=== PATIENT | female | born 1980 | race Asian ===

== ENCOUNTER 2017-12-31 05:30 | Inpatient (IN) | payer OTHER ==
[2017-12-31] MEDS ORDERED: LR / Pitocin 40 units/1000 ml 1,000 ML ONE (05:49)
[2017-12-31] MEDS ORDERED: Lidocaine 1% (PF) 30 ML VIAL ONE (05:49)
[2017-12-31] MEDS ORDERED: Promethazine HCl 25 MG/ML VIAL IM PRN (06:17)
[2017-12-31] MEDS ORDERED: Lidocaine 1% (PF) 30 ML VIAL SC PRN (06:17)
[2017-12-31] MEDS ORDERED: Ondansetron HCl/PF 4 MG/2 ML Vial IVP PRN (06:17)
[2017-12-31] MEDS ORDERED: LR / Pitocin 40 units/1000 ml 1,000 ML IV PRN (06:17)
[2017-12-31 06:27] LABS: Hemoglobin 13.4 g/dL (12.0-16.0); Mean Corpuscular HGB CONC 32.7 g/dL (32.0-36.0); Mean Corpuscular Volume 73.5 fl (81.0-99.0); Mean Platelet Volume 8.4 fL (7.4-10.4); Platelet Count 235 thou/uL (130-400); RBC Distribution Width 13.3 % (11.5-14.5); Red Blood Cell (RBC) Count 5.57 mill/uL (4.20-5.40); White Blood Cell (WBC) Count 11.4 thou/uL (4.8-10.8)
--- NOTE | 2017-12-31 06:32 | PDOC.LDHP ---
Labor and Delivery H&P Chief complaint: contractions, loss of fluid HPI: 37 yo at 39.5 by LMP c/s 7.3 week US presents with loss of fluid and contractions. Current gestational age (weeks): 39 (39.5) Dating criteria: last menstrual period Current complications: gestational diabetes (A1), other (AMA) Abnormal US findings: No Current medications: pre- vitamins, iron Social history: none - Physical Exam Vital signs reviewed and normal: yes General: NAD, breathing through contractions Heart: RRR Lungs: CTAB Abdomen: gravid Extremeties: no edema FHT: category 1 [place] contractions every: 2-3 - Vaginal Exam Effacement: 100% Station: 0 - OB Labs Blood type: A RH: positive Antibody Screen: negative HIV: negative RPR: negative HEPSAg: negative 1 hour GCT: negative 3 hour GTT: positive GBS: positive Urine drug screen: negative Rubella: immune - Assessment L&D Assessment: term patient in labor - Plan Plan: admit to L&D <Brandon Garcia - Last Filed: 12/31/17 06:26> Attending Addendum - Attending Addendum Date/Time: 12/31/17 4209 I personally evaluated the patient and discussed the management with Dr. Garcia. I agree with the History, Examination, Assessment and Plan documented above with any addition or exceptions noted below. Patient c/c/+1, subsequently precipitously delivered. <Pan Barrios - Last Filed: 12/31/17 14:20>
--- NOTE | 2017-12-31 06:36 | PDOC.OPDEL ---
OB Operative/Delivery Note Delivery Dr/Surgeon: Araceli Garcia Williamson Pre-Delivery Diagnosis: active labor, ruptured membrane Procedure/Post Delivery Dx: spontaneous vaginal delivery Weeks gestation: 39 (39.6) Anesthesia: none - Findings A Sex: female Weight: 3.345 kg - 1 min: 8 - 5 min: 9 - Additional Findings/Plan Placenta delivered: spontaneous Repaired Obstetrical Laceration: none Estimated blood loss: 300ml Post delivery plan: routine recovery <Brandon Garcia - Last Filed: 12/31/17 06:34> Attending Addendum - Attending Addendum Date/Time: 12/31/17 1421 Present for entire delivery. Multipara s/p precipitous term to viable male ag 8. delivered in BILL position, atrumatically with nuchal cord x 2. Optimal cord clamping performed. placed on mother. Cord blood sampled and placenta delivered via CCT. Uterus firmed with fundal massage and IV pitocin. Perineum inspected and no lacerations noted. <Pan Barrios - Last Filed: 12/31/17 14:29>
[2017-12-31 07:07] VITALS: BMI 23.1
[2017-12-31 07:10] LABS: HBSAg Index 0.18 S/CO (0-0.99); Hep B Surf Ag Non-Reactive S/CO (NonReactive)
[2017-12-31 07:11] LABS: Syphilis Antibody Nonreactive (Nonreactive); Syphilis Antibody Index 0.03 S/CO (<1.00 Non-Reactive)
[2017-12-31] MEDS ORDERED: Milk Of Magnesia 30 ML UDCUP PO PRN (09:00)
[2017-12-31] MEDS ORDERED: Bisacodyl 10 MG SUPP PR PRN (09:00)
[2017-12-31] MEDS ORDERED: Adacel (T-DAP) 0.5 ML VIAL IM ONE (09:00)
[2017-12-31] MEDS ORDERED: Benzocaine/Menthol 20-0.5% 60 ML CAN TOP PRN (09:00)
[2017-12-31] MEDS ORDERED: Lanolin Ointment 7 GM TUBE TOP PRN (09:00)
[2017-12-31] MEDS ORDERED: Preparation H Ointment 28 GM TUBE PR PRN (09:00)
[2017-12-31] MEDS ORDERED: LR / Pitocin 40 units/1000 ml 1,000 ML IV SCH (09:00)
[2017-12-31] MEDS: Ferrous Sulfate 325 MG TAB PO SCH ×2 (11:31→17:33)
[2017-12-31] MEDS: Docusate Calcium (SURFAK) 240 MG CAP PO SCH ×2 (11:37→22:10)
[2017-12-31] MEDS: Prenatal Vitamin 1 TAB PO SCH (11:37)
[2017-12-31] MEDS: Ibuprofen 800 MG TAB PO SCH ×2 (11:37→22:09)
[2018-01-01] MEDS: Ibuprofen 800 MG TAB PO SCH ×2 (05:51→14:31)
--- NOTE | 2018-01-01 08:26 | PDOC.PP ---
Post Progress Note Post Day #: 1 Subjective: Pain well controlled. No concerns. would like to go home to day if possible. [employer] Specialist used. PO intake tolerated: yes Flatus: yes Ambulation: yes Vital Signs (12 hours) Temp Pulse Resp BP BP 01/01/18 06:00 98.4 F 67 16 104/69 01/01/18 00:00 97.9 F 68 18 101/59 L Weight Weight 61.235 kg - Physical Examination General: NAD Cardiovascular: no m/r/g, RRR Respiratory: clear to auscultation bilaterally, non-labored breathing Abdominal: + bowel sounds, lochia, no distention, appropriately TTP Fundus firm & at: 2 cm below umbilicus Extremities: negative homans (B) Neurological: no gross focal deficits Psychiatric: A&Ox3, normal affect Result Diagrams: 12/31/17 05:56 Additional Labs: Post Labs Blood Type A POSITIVE 12/31/17 05:56 Hep Bs Antigen Non-Reactive S/CO (NonReactive) 12/31/17 05:56 (1) Term delivered Code(s): O80 - ENCOUNTER FOR FULL-TERM UNCOMPLICATED DELIVERY Status: Acute Comment: Pain is controlled and patient is doing well. Will plan on d/c later today if baby is stable for d/c. (2) Gestational diabetes Code(s): O24.419 - GESTATIONAL DIABETES MELLITUS IN , UNS CONTROL Status: Acute Qualifiers: Gestational diabetes mellitus control: diet-controlled Comment: no episodes of hypoglycemia. monitor and provide insulin or glucose as needed.
[2018-01-01 08:38] VITALS: TEMP 98.7
[2018-01-01 08:41] VITALS: BP 106/66
[2018-01-01] MEDS: Prenatal Vitamin 1 TAB PO SCH (10:05)
[2018-01-01] MEDS: Docusate Calcium (SURFAK) 240 MG CAP PO SCH (10:05)
[2018-01-01] MEDS: Ferrous Sulfate 325 MG TAB PO SCH (10:06)
== END 2018-01-01 19:12 | disposition home or self-care (01) | DRG 775 ==
LOC: L&D 05:30 → 3SW 09:05
PROVIDERS: ADMIT Emergency Medicine; ATTEND Emergency Medicine
PROC: 10E0XZZ Delivery of Products of Conception, External Approach (ICD-10-PCS; principal; 2017-12-31)
DX: O24.420 Gestational diabetes mellitus in childbirth, diet controlled (principal); O62.3 Precipitate labor; Z3A.39 39 weeks gestation of pregnancy; Z37.0 Single live birth; O99.824 Streptococcus B carrier state complicating childbirth; O69.81X0 Labor and delivery complicated by cord around neck, without compression, not applicable or unspecified
CPT/HCPCS: 36416; 85027; 86780; 87340; J2001